=== PATIENT | male | born 1975 | race African-American/Black ===

== ENCOUNTER 2018-07-05 18:36 | Emergency (ER) | payer OTHER, BC ==
[~2018-07-05] VITALS: Ht 170.2 cm; Wt 93.1 kg
[2018-07-05] MEDS ORDERED: MOTRIN800 MG PO (20:41)
[2018-07-05] MEDS ORDERED: VALIUM5 MG PO (20:41)
[2018-07-05] MEDS ORDERED: NORCO 7.5/321 TABLET PO (20:41)
[2018-07-05 21:08] VITALS: BP 121/81
== END 2018-07-05 21:10 | disposition home or self-care (01) ==
LOC: EME 18:36
DX: S16.1XXA Strain of muscle, fascia and tendon at neck level, initial encounter (principal); S93.401A Sprain of unspecified ligament of right ankle, initial encounter; M54.5 Low back pain; V49.40XA Driver injured in collision with unspecified motor vehicles in traffic accident, initial encounter; Y92.481 Parking lot as the place of occurrence of the external cause; M20.11 Hallux valgus (acquired), right foot; F17.200 Nicotine dependence, unspecified, uncomplicated
CPT/HCPCS: 72040; 72070; 72100; 73610; 73630; 99281; 99284; J1885